=== PATIENT | female | born 1945 | race Caucasian/White ===

== ENCOUNTER 2021-11-07 05:26 | Inpatient (IN) | payer MEDICARE, OTHER ==
[2021-10-30 15:40] LABS: BASOPHILS % (AUTO) 0.4 % (0-1); EOSINOPHILS # (AUTO) 0.1 X10'3 (0-0.9); EOSINOPHILS % (AUTO) 1.5 % (0-6); LYMPHOCYTES # (AUTO) 2.3 X10'3 (1.1-4.8); LYMPHOCYTES % (AUTO) 31.8 % (21-51); MEAN CORPUSCULAR HEMOGLOBIN 29.8 PG (27.0-31.0); MEAN CORPUSCULAR HGB CONC 32.7 g/dL (33.0-36.5); MEAN PLATELET VOLUME 8.9 FL (7.4-10.4); MONOCYTES # (AUTO) 0.6 X10'3 (0-0.9); MONOCYTES % (AUTO) 8.4 % (2-12); NEUTROPHILS # (AUTO) 4.2 X10'3 (1.8-7.7); NEUTROPHILS % (AUTO) 57.9 % (42-75); PRE OP HEMATOCRIT 40.5 % (35.0-45.0); PRE OP HEMOGLOBIN 13.2 g/dL (12.0-16.0); PRE OP PLATELET COUNT 278 X10'3 (140-440); RED BLOOD COUNT 4.45 X10'6 (4.20-5.60)
[2021-10-30 15:52] LABS: ALBUMIN 3.5 G/DL (3.4-5.0); ALBUMIN/GLOBULIN RATIO 0.8 (1.1-1.5); ALKALINE PHOSPHATASE 110 IU/L (46-116); BLOOD UREA NITROGEN 20 MG/DL (7-18); BUN/CREATININE RATIO 21.1 (6.6-38.0); CALCIUM 8.9 MG/DL (8.5-10.1); CHLORIDE 104 MMOL/L (99-107); CREATININE 0.95 MG/DL (0.40-0.90); PRE OP ALT 20 U/L (30-65); PRE OP ANION GAP 10 (8-16); PRE OP AST 14 U/L (10-37); PRE OP BILIRUB, TOTAL 0.3 MG/DL (0.0-1.0); PRE OP GLUCOSE 95 MG/DL (70-104); PRE OP POTASSIUM 4.2 MMOL/L (3.4-5.1); PRE OP SODIUM 141 MMOL/L (135-145); TOTAL CARBON DIOXIDE 27.3 MMOL/L (24-32); TOTAL PROTEIN 7.9 G/DL (6.4-8.2); eGFR 57 ML/MIN
[~2021-11-07] VITALS: Ht 170.2 cm; Wt 89.4 kg
[2021-11-07] VITALS (21 sets, daily range): BP systolic 94–134; BP diastolic 44–80
[~2021-11-07 05:26] MED LIST: ASPI-1265 PO; METO-384 PO
[2021-11-07] MEDS ORDERED: vancomycin 1,500 MG in NS 300ml IV soln IV ONE (05:30)
[2021-11-07] MEDS ORDERED: famotidine 20mg tablet PO ONE (05:30)
[2021-11-07] MEDS ORDERED: tranexamic acid inj. 1,000 MG in 0.7% saline 100 ML PMX IV ONE (05:30)
[2021-11-07] MEDS ORDERED: cefazolin/dext.iso 2gm/50ml IV ONE (05:30)
[2021-11-07] MEDS ORDERED: DOCUMENT DATE & TIME OF BETA-BLOCKER PO ONE (05:30)
[2021-11-07] MEDS: ringers solution, lacted 1,000 ML IV SCH ×2 (06:21→15:02)
[2021-11-07] MEDS ORDERED: ketorolac trometh. 30mg/ml inj. ONE (06:44)
[2021-11-07] MEDS ORDERED: cloNIDine hcl/PF 100mcg/ml inj ONE (06:44)
[2021-11-07] MEDS ORDERED: vancomycin 1,000mg inj ONE (06:44)
[2021-11-07] MEDS ORDERED: ROPIVAcaine 0.5% (5mg/ml) 30ml vial ONE ×2 (06:45→09:38)
[2021-11-07] MEDS ORDERED: FENTANYL CITRATE/PF 50 MCG/1 ML VIAL ONE (07:35)
[2021-11-07] MEDS ORDERED: MIDAZolam 1mg/ml 10ml vial ONE (07:35)
[2021-11-07] MEDS ORDERED: tetracaine 1% (10mg/ml) pres. free inj. ONE (07:35)
[2021-11-07] MEDS ORDERED: morphine 4 MG/ML inj SYRINge IV PRN (09:10)
[2021-11-07] MEDS ORDERED: ondansetron/PF 4mg/2ml inj IV PRN ×2 (09:10→10:40)
[2021-11-07] MEDS ORDERED: ringers solution, lacted 1,000 ML IV SCH (09:10)
[2021-11-07] MEDS ORDERED: proCHLORperazine 10 MG/2 ml inj IV PRN (09:10)
[2021-11-07] MEDS ORDERED: morphine 2 MG/ML inj. syringe IV PRN (09:10)
[2021-11-07] MEDS ORDERED: meperidine/PF 25mg/ml syringe IV PRN ×3 (09:10)
[2021-11-07] MEDS ORDERED: propofol inj 20 ML IV ONE (09:38)
--- NOTE | 2021-11-07 10:36 | NUR ---
Received from OR via [facility] BED, accompanied by Anesthesiologist JULIA and report given by Anesthesiolgist. VSS. 20G RUE RUNNING LR AT 100. L KNEE HAS KNEE WRAP AND POWDER PACK, JONI VAC PRESENT +DP TO L FOOT, TOES PWD. PT DENIES PAIN. SPINAL LEVEL AT T9. Addendum: 11/07/21 at 1057 by Huan Galdamez RN, RN Amended: Links added.
[2021-11-07] MEDS ORDERED: HYDROmorphone 1 mg/ml syringe IV PRN (10:40)
[2021-11-07] MEDS ORDERED: acetaminophen 325mg tablet PO PRN (10:40)
[2021-11-07] MEDS ORDERED: diphenhydrAMINE 25mg capsule PO PRN ×2 (10:40)
[2021-11-07] MEDS ORDERED: bisacodyl 10mg suppository rectal RC PRN (10:40)
[2021-11-07] MEDS ORDERED: HYDROmorphone inj. 0.5 MG/0.5 ML DISP.SYRIN IV PRN (10:40)
[2021-11-07] MEDS ORDERED: magnesium hydroxide 30ml (MOM) UD suspension PO PRN (10:40)
--- NOTE | 2021-11-07 12:16 | NUR ---
PATIENT HAS MET ALL CRITERIA FOR TRANSFER TO THE SURGICAL FLOOR. VSS. DRESSINGS INTACT. BED LOW, CALL LIGHT PRESENT AND 2 RAILS UP. RN PRESENT TO ACCEPT CARE OF PATIENT AND REPORT HAS BEEN CALLED. ALL QUESTIONS ANSWERED TO ACCEPTING RN [place]. RN PRESENT TO ACCEPT CARE OF PATIENT. SPINAL ANESTHESIA STILL INTACT. VSS. 2 BAGS DELIVERED TO BEDSIDE. ONE SILVER COLORED BRACELET PLACED IN PATIENT BELONGING BAG( LABELED WITH HER NAME) Addendum: 11/07/21 at 1228 by Huan Marrero - CHRISTA RN Amended: Links added.
--- NOTE | 2021-11-07 12:30 | NUR ---
Received report from CHRISTA Pressley. patient arrived to floor. VSS. no complaints of pain. Dressing CDI.
[2021-11-07] MEDS: potassium Cl 20mEq in NS 1,000 ML IV SCH ×2 (15:03→17:56)
[2021-11-07] MEDS: HYDROcodone/acetaminophen 10/325mg tab PO PRN (16:05)
[2021-11-07] MEDS: ceFAZolin/D5W- 1GM premix 50 ML IV SCH ×2 (16:23→23:44)
--- NOTE | 2021-11-07 18:14 | NUR ---
Problems reprioritized. Patient report given, questions answered & plan of care reviewed with CHRISTA Barney.
--- NOTE | 2021-11-07 18:52 | NUR ---
Patient in room [facility]. I have received report from JOHN GOODWIN and had the opportunity to ask questions and assume patient care.
[2021-11-07] MEDS ORDERED: vancomycin/NS 1 GM ADD-VANTAGE 250 ML IV SCH (20:00)
[2021-11-07] MEDS: metoprolol succinate 25mg (24-HOUR) SR. Tablet PO SCH (21:00)
[2021-11-07] MEDS: sennosides 8.6mg tablet PO SCH (21:31)
[2021-11-07] MEDS: aspirin 81mg, enteric-coated 1 TAB TABLET.DR PO SCH (21:31)
[2021-11-08] VITALS: BP 120/63
[2021-11-08] MEDS: HYDROcodone/acetaminophen 10/325mg tab PO PRN ×4 (03:10→21:00)
[2021-11-08 04:00] VITALS: BP 102/48
--- NOTE | 2021-11-08 06:17 | NUR ---
Problems reprioritized. Patient report given, questions answered & plan of care reviewed with JOHN GOODWIN.
[2021-11-08 06:23] LABS: BASOPHILS % (AUTO) 0.3 % (0-1); EOSINOPHILS # (AUTO) 0.1 X10'3 (0-0.9); EOSINOPHILS % (AUTO) 0.8 % (0-6); HEMATOCRIT 31.9 % (35.0-45.0); HEMOGLOBIN 10.7 g/dl (12.0-16.0); LYMPHOCYTES # (AUTO) 1.6 X10'3 (1.1-4.8); LYMPHOCYTES % (AUTO) 21.4 % (21-51); MEAN CORPUSCULAR HEMOGLOBIN 30.2 PG (27.0-31.0); MEAN CORPUSCULAR HGB CONC 33.5 g/dL (33.0-36.5); MEAN PLATELET VOLUME 9.3 FL (7.4-10.4); MONOCYTES # (AUTO) 1.2 X10'3 (0-0.9); MONOCYTES % (AUTO) 15.8 % (2-12); NEUTROPHILS # (AUTO) 4.5 X10'3 (1.8-7.7); NEUTROPHILS % (AUTO) 61.7 % (42-75); PLATELET COUNT 166 X10'3 (140-440); RED BLOOD COUNT 3.55 X10'6 (4.20-5.60); RED CELL DISTRIBUTION WIDTH 12.6 % (11.5-14.5); WHITE BLOOD COUNT 7.4 X10'3 (4.5-11.0)
[2021-11-08 06:40] LABS: ALANINE AMINOTRANSFERASE 16 U/L (12-78); ALBUMIN 2.4 G/DL (3.4-5.0); ALBUMIN/GLOBULIN RATIO 0.7 (1.1-1.5); ALKALINE PHOSPHATASE 72 IU/L (46-116); ANION GAP 8 (8-16); ASPARTATE AMINO TRANSFERASE 18 U/L (10-37); BILIRUBIN,TOTAL 0.3 MG/DL (0.1-1.0); BLOOD UREA NITROGEN 27 MG/DL (7-18); BUN/CREATININE RATIO 22.5 (6.6-38.0); CALCIUM 7.8 MG/DL (8.5-10.1); CHLORIDE 106 MMOL/L (99-107); GLUCOSE 152 MG/DL (70-104); POTASSIUM 4.6 MMOL/L (3.5-5.1); SODIUM 140 MMOL/L (135-145); TOTAL CARBON DIOXIDE 25.8 MMOL/L (24-32); TOTAL PROTEIN 5.9 G/DL (6.4-8.2); eGFR 43 ML/MIN
[2021-11-08 07:25] VITALS: BP 115/51
[2021-11-08] MEDS: aspirin 81mg, enteric-coated 1 TAB TABLET.DR PO SCH ×2 (08:52→20:59)
[2021-11-08] MEDS: potassium Cl 20mEq in NS 1,000 ML IV SCH (10:49)
--- NOTE | 2021-11-08 12:22 | NUR ---
Joint Surgery Consult: Pt s/p L knee surgery this admit per EMR. Pt seen by SHERICE for written/verbal high protein diet ed w/ RD contact information provided. SHERICE encouraged pt to contact dietitian's office if further questions/concerns. Addendum: 11/08/21 at [address] Amended: Links added.
[2021-11-08 12:44] VITALS: BP 117/61
[2021-11-08 18:00] VITALS: BP 128/75
--- NOTE | 2021-11-08 18:14 | NUR ---
Problems reprioritized. Patient report given, questions answered & plan of care reviewed with CHRISTA Barney.
--- NOTE | 2021-11-08 19:01 | NUR ---
Patient in room [facility]. I have received report from HYUN GOODWIN and had the opportunity to ask questions and assume patient care.
[2021-11-08] MEDS: sennosides 8.6mg tablet PO SCH (20:59)
[2021-11-08] MEDS: metoprolol succinate 25mg (24-HOUR) SR. Tablet PO SCH (20:59)
[2021-11-09] MEDS: potassium Cl 20mEq in NS 1,000 ML IV SCH (03:23)
[2021-11-09] MEDS: HYDROcodone/acetaminophen 10/325mg tab PO PRN (05:45)
--- NOTE | 2021-11-09 06:29 | NUR ---
Problems reprioritized. Patient report given, questions answered & plan of care reviewed with IRASEMA GOODWIN.
--- NOTE | 2021-11-09 06:37 | NUR ---
Patient in room [facility]. I have received report from CHRISTA Barney and had the opportunity to ask questions and assume patient care.
[2021-11-09 07:00] VITALS: BP 122/55
[2021-11-09 07:06] LABS: BASOPHILS % (AUTO) 0.4 % (0-1); EOSINOPHILS # (AUTO) 0.2 X10'3 (0-0.9); EOSINOPHILS % (AUTO) 2.3 % (0-6); HEMATOCRIT 30.8 % (35.0-45.0); HEMOGLOBIN 10.4 g/dl (12.0-16.0); LYMPHOCYTES # (AUTO) 1.8 X10'3 (1.1-4.8); MEAN CORPUSCULAR HEMOGLOBIN 30.9 PG (27.0-31.0); MEAN CORPUSCULAR HGB CONC 33.7 g/dL (33.0-36.5); MEAN CORPUSCULAR VOLUME 91.7 FL (78-98); MEAN PLATELET VOLUME 9.1 FL (7.4-10.4); MONOCYTES # (AUTO) 0.9 X10'3 (0-0.9); MONOCYTES % (AUTO) 13.5 % (2-12); NEUTROPHILS % (AUTO) 57.8 % (42-75); PLATELET COUNT 173 X10'3 (140-440); RED BLOOD COUNT 3.36 X10'6 (4.20-5.60); WHITE BLOOD COUNT 6.9 X10'3 (4.5-11.0)
[2021-11-09 07:27] LABS: ALANINE AMINOTRANSFERASE 17 U/L (12-78); ALBUMIN 2.4 G/DL (3.4-5.0); ALBUMIN/GLOBULIN RATIO 0.6 (1.1-1.5); ALKALINE PHOSPHATASE 83 IU/L (46-116); ANION GAP 5 (8-16); ASPARTATE AMINO TRANSFERASE 19 U/L (10-37); BILIRUBIN,TOTAL 0.4 MG/DL (0.1-1.0); BLOOD UREA NITROGEN 17 MG/DL (7-18); BUN/CREATININE RATIO 16.5 (6.6-38.0); CALCIUM 8.3 MG/DL (8.5-10.1); CHLORIDE 107 MMOL/L (99-107); CREATININE 1.03 MG/DL (0.40-0.90); GLUCOSE 131 MG/DL (70-104); SODIUM 141 MMOL/L (135-145); TOTAL CARBON DIOXIDE 29.1 MMOL/L (24-32); TOTAL PROTEIN 6.1 G/DL (6.4-8.2); eGFR 52 ML/MIN
[2021-11-09] MEDS: aspirin 81mg, enteric-coated 1 TAB TABLET.DR PO SCH ×2 (09:46→20:35)
--- NOTE | 2021-11-09 18:38 | NUR ---
Patient in room [facility]. I have received report from IRASEMA GOODWIN and had the opportunity to ask questions and assume patient care.
--- NOTE | 2021-11-09 18:57 | NUR ---
Problems reprioritized. Patient report given, questions answered & plan of care reviewed with CHRISTA Barney.
[2021-11-09 19:00] VITALS: BP 149/58
[2021-11-09] MEDS: sennosides 8.6mg tablet PO SCH (20:35)
[2021-11-09] MEDS: metoprolol succinate 25mg (24-HOUR) SR. Tablet PO SCH (20:36)
[2021-11-10] MEDS: HYDROcodone/acetaminophen 10/325mg tab PO PRN ×2 (00:47→20:42)
[2021-11-10 00:51] VITALS: BP 156/70
--- NOTE | 2021-11-10 06:18 | NUR ---
Problems reprioritized. Patient report given, questions answered & plan of care reviewed with IRASEMA GOODWIN.
--- NOTE | 2021-11-10 06:45 | NUR ---
Patient in room [facility]. I have received report from CHRISTA Barney and had the opportunity to ask questions and assume patient care.
[2021-11-10 07:00] VITALS: BP 133/64
[2021-11-10] MEDS: aspirin 81mg, enteric-coated 1 TAB TABLET.DR PO SCH ×2 (08:12→20:40)
[2021-11-10 08:42] LABS: ALANINE AMINOTRANSFERASE 15 U/L (12-78); ALBUMIN 2.3 G/DL (3.4-5.0); ALBUMIN/GLOBULIN RATIO 0.6 (1.1-1.5); ALKALINE PHOSPHATASE 83 IU/L (46-116); ANION GAP 9 (8-16); ASPARTATE AMINO TRANSFERASE 26 U/L (10-37); BILIRUBIN,TOTAL 0.3 MG/DL (0.1-1.0); BLOOD UREA NITROGEN 22 MG/DL (7-18); BUN/CREATININE RATIO 17.7 (6.6-38.0); CALCIUM 8.6 MG/DL (8.5-10.1); CHLORIDE 103 MMOL/L (99-107); CREATININE 1.24 MG/DL (0.40-0.90); GLUCOSE 130 MG/DL (70-104); POTASSIUM 4.4 MMOL/L (3.5-5.1); SODIUM 140 MMOL/L (135-145); TOTAL PROTEIN 6.3 G/DL (6.4-8.2); eGFR 42 ML/MIN
[2021-11-10 08:49] LABS: BASOPHILS % (AUTO) 0.4 % (0-1); EOSINOPHILS # (AUTO) 0.2 X10'3 (0-0.9); EOSINOPHILS % (AUTO) 2.9 % (0-6); HEMATOCRIT 31.3 % (35.0-45.0); HEMOGLOBIN 10.5 g/dl (12.0-16.0); LYMPHOCYTES # (AUTO) 2.1 X10'3 (1.1-4.8); LYMPHOCYTES % (AUTO) 29.7 % (21-51); MEAN CORPUSCULAR HEMOGLOBIN 30.4 PG (27.0-31.0); MEAN CORPUSCULAR HGB CONC 33.5 g/dL (33.0-36.5); MEAN CORPUSCULAR VOLUME 90.9 FL (78-98); MEAN PLATELET VOLUME 9.2 FL (7.4-10.4); MONOCYTES # (AUTO) 0.7 X10'3 (0-0.9); MONOCYTES % (AUTO) 10.2 % (2-12); NEUTROPHILS # (AUTO) 3.9 X10'3 (1.8-7.7); NEUTROPHILS % (AUTO) 56.8 % (42-75); PLATELET COUNT 204 X10'3 (140-440); RED BLOOD COUNT 3.45 X10'6 (4.20-5.60); RED CELL DISTRIBUTION WIDTH 12.9 % (11.5-14.5)
[2021-11-10 11:00] VITALS: BP 132/55
--- NOTE | 2021-11-10 18:30 | NUR ---
Problems reprioritized. Patient report given, questions answered & plan of care reviewed with CHRISTA Hutchison.
--- NOTE | 2021-11-10 18:30 | NUR ---
Patient in room [facility]. I have received report from Samia GOODWIN and had the opportunity to ask questions and assume patient care.
[2021-11-10 19:00] VITALS: BP 143/62
[2021-11-10] MEDS: sennosides 8.6mg tablet PO SCH (20:40)
[2021-11-10] MEDS: metoprolol succinate 25mg (24-HOUR) SR. Tablet PO SCH ×2 (20:44→20:45)
[2021-11-11] VITALS: BP 128/51
[2021-11-11] MEDS: HYDROcodone/acetaminophen 10/325mg tab PO PRN (05:13)
--- NOTE | 2021-11-11 06:20 | NUR ---
Problems reprioritized. Patient report given, questions answered & plan of care reviewed with Luh GOODWIN.
[2021-11-11] MEDS: aspirin 81mg, enteric-coated 1 TAB TABLET.DR PO SCH (07:39)
--- NOTE | 2021-11-11 11:03 | NUR ---
Paged PT to work with stairs with pt. They are aware discharge pending.
--- NOTE | 2021-11-11 11:18 | NUR ---
Spoke with Jin figueroa's son. He will be at home to help pt. up stairs and around the house. He is aware [facility] office has ordered [place] for the pt. and that she is also prescribed ASA BID.
[2021-11-11 12:42] VITALS: BP 124/97
[2021-11-11 12:43] VITALS: BP 124/97
[2021-11-11 12:46] VITALS: BP 121/53
--- NOTE | 2021-11-11 13:18 | NUR ---
DISCHARGE NOTE: Paperwork reviewed with pt. She is aware of BID ASA and that [facility]'s office states they called in a prescription of [place] that she needs to p/u. Pt. has a friend who will pick her up after work- she gets off at 2pm and is presumed to be here at 1430. Pt. has no questions at this time.
== END 2021-11-11 14:13 | disposition home or self-care (01) | DRG 470 ==
LOC: PAS 05:26 → SUR 3N 10:45
PROVIDERS: ADMIT Orthopaedic Surgery; ATTEND Orthopaedic Surgery
PROC: 3E0T3BZ Introduction of Anesthetic Agent into Peripheral Nerves and Plexi, Percutaneous Approach (ICD-10-PCS; 2021-11-07)
PROC: 3E0T33Z Introduction of Anti-inflammatory into Peripheral Nerves and Plexi, Percutaneous Approach (ICD-10-PCS; 2021-11-07)
PROC: 0SRD0J9 Replacement of Left Knee Joint with Synthetic Substitute, Cemented, Open Approach (ICD-10-PCS; principal; 2021-11-07 07:29)
DX: M17.12 Unilateral primary osteoarthritis, left knee (principal); I10 Essential (primary) hypertension; E66.9 Obesity, unspecified; Z68.30 Body mass index [BMI] 30.0-30.9, adult
CPT/HCPCS: 36415; 80053; 82948; 85025; 85610; 85730; 86885; 86900; 86901; 87081; 97110; 97116; 97161; 97530; A6449; A6455; A7000; A9272; C1713; C1758; C1776; G0378; J0690; J0735; J1170; J1885; J2250; J2704; J2795; J3010; J3370; J3480; J3490; J7040; J7120; Q0163; U0003; U0005